=== PATIENT | male | born 1945 | race Caucasian/White ===

== ENCOUNTER → 2018-04-25 | Outpatient (CLI) | payer BC | END | disposition home or self-care (01) | LOC: CFH 10:23 | PROVIDERS: ATTEND Physician Assistant | DX: M81.0 Age-related osteoporosis without current pathological fracture (principal); M08.00 Unspecified juvenile rheumatoid arthritis of unspecified site | CPT/HCPCS: 77080 ==

== ENCOUNTER 2020-06-02 10:24 | Outpatient (CLI) | payer BC | END 2020-06-02 23:59 | disposition home or self-care (01) | LOC: CFH 10:24 | PROVIDERS: ATTEND Internal Medicine | DX: M81.0 Age-related osteoporosis without current pathological fracture (principal); E03.9 Hypothyroidism, unspecified; E78.5 Hyperlipidemia, unspecified | CPT/HCPCS: 77080 ==